=== PATIENT | male | born 1970 | race Caucasian/White ===

== ENCOUNTER 2018-06-20 17:27 | Observation (INO) | payer OTHER, BC ==
--- NOTE | 2018-06-20 17:45 | PDOC ---
Rapid Medical Evaluation Time Seen by Provider: 06/20/18 17:43 Medical Evaluation: 06/20/18 17:43 I have performed a brief in-person evaluation of this patient. The patient presents with a chief complaint of:sent by for eval abnormal EKG yesterday in the office. history of MO, pt has no complaints at present. history of HTN Pertinent physical exam findings: I have ordered the following:EKG, cbc , cmet, trop , CPK The patient will proceed to the ED for further evaluation.
[2018-06-20 18:00] VITALS: BMI 32.5
--- NOTE | 2018-06-20 18:50 | PDOC ---
History of Present Illness - General Chief Complaint: Blood Pressure Problem Stated Complaint: PCP SENT/EVALUATION, SENT BY CLIENT SERVICE MANAGER Time Seen by Provider: 06/20/18 17:43 - History of Present Illness Initial Comments: 47 year old male with with history of HTN, HLD, and recent ND (AMA'd from [facility] on 05/22 after being told) presenting to our ED for elevated BP after Dr. Awan saw him yesterday and noted elevated pressures with septal infarct EKG and afib so he told him to come to the hospital. Per conversation with Dr. Duran, this patient has been known to use cocaine in the past and there was a report of him having an ND in his records as well. The patient, however denies any symptoms including chest pain, SOB, headache, palpitations, nausea, vomiting , or any other symptoms. He admits to Marijuana usage but no other drug usage. 06/20/18 22:13 Past History - Past Medical History Allergies/Adverse Reactions: Allergies Allergy/AdvReac Type Severity Reaction Status Date / Time No Known Allergies Allergy Verified 06/20/18 17:49 Home Medications: Ambulatory Orders Albuterol Sulfate Inhaler - [Ventolin Hfa Inhaler -] 1 - 2 inh PO Q4H 06/20/18 Aspirin [Aspirin EC] 81 mg PO DAILY 06/20/18 Fluticasone/Salmeterol [Advair Hfa 115-21 Mcg Inhaler] 1 inh PO BID 06/20/18 Metoprolol Succinate [Toprol Xl -] 100 mg PO DAILY 06/20/18 Simvastatin [Zocor -] 40 mg PO HS 06/20/18 Cardiac Disorders: Yes (ND 05/2018) COPD: No CHF: No HTN: Yes - Suicide/Smoking/Psychosocial Hx Smoking History: Current every day smoker Number of Cigarettes Smoked Daily: 0 Information on smoking cessation initiated: Yes Hx Alcohol Use: No Drug/Substance Use Hx: No Substance Use Type: Marijuana Review of Systems - Review of Systems Constitutional: No: Chills, Diaphoresis HEENTM: No: Blurred Vision, Tearing, Recent change in vision, Double Vision Respiratory: No: Cough, Orthopnea, Shortness of Breath Cardiac (ROS): No: Chest Pain, Edema, Irregular Heart Rate ABD/GI: No: Constipated, Diarrhea, Nausea, Vomiting : No: Burning, Dysuria Musculoskeletal: No: Back Pain, Joint Pain Integumentary: No: Bruising, Erythema, Flushing, Lesions Neurological: No: Headache, Numbness, Paresthesia, Pre-Existing Deficit, Seizure , Tingling, Ataxia Psychiatric: No: Anxiety, Depression Endocrine: No: Excessive Sweating, Flushing Hematologic/Lymphatic: No: Anemia, Blood Clots, Easy Bleeding *Physical Exam - Vital Signs Last Vital Signs Temp Pulse Resp BP Pulse Ox 99 F 69 18 179/127 H 97 06/20/18 17:44 06/20/18 17:44 06/20/18 17:44 06/20/18 17:44 06/20/18 17:44 - Physical Exam General Appearance: Yes: Nourished, Appropriately Dressed. No: Apparent Distress HEENT: positive: EOMI, DANIEL, Normal ENT Inspection, Normal Voice Neck: positive: Trachea midline, Normal Thyroid, Supple. negative: Tender, Rigid Respiratory/Chest: positive: Lungs Clear, Normal Breath Sounds. negative: Chest Tender, Respiratory Distress, Accessory Muscle Use Cardiovascular: positive: Irregularly Irregular. negative: Regular Rhythm, Regular Rate Gastrointestinal/Abdominal: positive: Normal Bowel Sounds, Flat, Soft. negative : Tender Lymphatic: negative: Adenopathy, Tenderness Musculoskeletal: positive: Normal Inspection. negative: Decreased Range of Motion Extremity: positive: Normal Capillary Refill, Normal Inspection, Normal Range of Motion. 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 Awan noticed EKG changes ( suspected lateral wall ST changes) and elevated BP to 180s. BP on presentation to our ED was 200s but patient was completely asymptomatic. Patient given labetalol 10 IV with minimal response and hydrochlorothiazide 25 PO given after discussion with Dr. Funk (covering for Dr. Awan). Dr. Awan also recommended starting Eliquis 5 PO given his Afib after chemistry returns ( assuming it would be WNL). Patient also discussed with Dr. Duran who also recommended blood pressure control per cardiology. He also added that he suspected this patient of cocaine abuse. Unfortunately our lab had significant CMP delays because of the learning curve with a new machine. The troponin returned elevated (1.15) after my conversation with Dr. Duran and Dr. Castillo. We discussed the case with the ED team and decided to anti- coagulate with heparin drip for concern of NSTEMI along with the AFIB and [id number] of 2. Overall pathological picture of the patient is hypertensive urgency with cardiac ischemia vs. hypertensive emergency (given troponin leak) . However, patient was treated for both pathologies with BP control, AC, and ASA. Patient was also signed out to hospitalist service for "tuck-in service" *DC/Admit/Observation/Transfer Diagnosis at time of Disposition: Hypertensive emergency, Elevated troponin I level - Discharge Dispostion Condition at time of disposition: Stable Decision to Admit order: Yes - Referrals - Patient Instructions - Post Discharge Activity
--- NOTE | 2018-06-20 19:13 | PDOC ---
Attending Attestation - [facility] HPI: 06/20/18 20:07 The patient is a 47 year old male, with a significant past medical history of HTN and HI (05/2018), who presents to the ED complaining of an abnormal EKG. 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 He went to [facility] ED for evaluation and was told that he had left sided heart failure, hypertension and elevated troponin. 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 He saw his PCP Dr. Cutler who referred him to Dr. Frias. He saw them yesterday and had an EKG performed that was abnormal. Dr. Frias advised the patient to come to the ED for further evaluation. The patient denies chest pain, shortness of breath, headache and dizziness. Denies fever, chills, nausea, vomiting, diarrhea or constipation. Denies dysuria , frequency, urgency and hematuria. Allergies: None Past surgical history: None reported Social History: Marijuana Use. - Physicial Exam PE: 06/20/18 20:07 Constitutional: Awake, alert, oriented. No acute distress. Head: Normocephalic. Atraumatic Eyes: PERRL. EOMI. Conjunctivae are not pale. ENT: Mucous membranes are moist and intact. Posterior pharynx without exudates or erythema. Uvula midline. Neck: Supple. Full ROM. No lymphadenopathy. Cardiovascular: Regular rate. Regular rhythm. S1, S2 regular. Distal pulses are 2+ and symmetric. Pulmonary/Chest: No evidence of respiratory distress. Clear to auscultation bilaterally No wheezing, rales or rhonchi. Abdominal: Soft and non-distended. There is no tenderness. No rebound, guarding or rigidity. No organomegaly. No palpable masses. Good bowel sounds. Back: No CVA tenderness. Musculoskeletal: No edema. No cyanosis. No clubbing. Full range of motion in all extremities. Nocalf tenderness. Radial/pedal pulses are intact and 2+ bilaterally Skin: Skin is warm and dry. No petechiae. No purpura. Neurological: Alert and oriented to person, place, and time. Cranial nerves II -XII are grossly intact. Normal speech. Strength is grossly symmetric. No sensory deficits. Psychiatric: Good eye contact. Normal interaction, affect and behavior. <Luis Romero - Last Filed: 06/20/18 20:07> - Resident Resident Name: Patricio Domínguez - ED Attending Attestation I have performed the following: I have examined & evaluated the patient, The case was reviewed & discussed with the resident, I agree w/resident's findings & plan, Exceptions are as noted - Medical Decision Making 06/20/18 19:12 I, Dr. Cary Lee, DO, attest that this document has been prepared under my direction and personally reviewed by me in its entirety. I further attest, that it accurately reflects all work, treatment, procedures and medical decision -making performed by me. 06/20/18 21:36 a/p: 47yo male with "HI" a month ago treated at [facility] - saw Dr. Frias yesterday and was told to come to the ED for an abnl ekg -pt arrives hypertensive -pt denies all somatic complaints -no cp/sob -pt denies paresthesias -pt with new onset afib on ekg -on beta martínez -will give labetalol iv and then hctz if still hypertensive -will send labs, trop, ekg, cxr 06/20/18 21:38 resident discussed the case with Dr. Funk who recommends elaquis for new onset afib 06/20/18 21:56 resident is discussing the case with Dr. Duran who accepted to service <Cary Lee - Last Filed: 06/20/18 22:11> Heart Score/ECG Review - ECG Intrepretation Comment:: 06/20/18 20:22 afib at 76, lvh, t wave inversions lateral leads, q waves anteriorly, abnl ekg <Cary Lee - Last Filed: 06/20/18 22:11>
[2018-06-20 20:18] LABS: BASO % 1.4 % (0-2.0); EOS % 3.2 % (0-4.5); HEMATOCRIT 45.8 % (35.4-49); HEMOGLOBIN 15.6 GM/dL (11.7-16.9); LYMPH % 17.6 % (8-40); MCH 29.3 pg (25.7-33.7); MEAN CELL VOLUME 86.3 fl (80-96); MEAN PLT VOLUME 8.7 fl (7.5-11.1); MONO % 7.4 % (3.8-10.2); NEUT % 70.4 % (42.8-82.8); PLATELET COUNT 302 K/MM3 (134-434); RBC 5.31 M/mm3 (4.00-5.60); RDW 14.3 % (11.9-15.9); WHITE BLOOD COUNT 13.9 K/mm3 (4.0-10.0)
[2018-06-20] MEDS ORDERED: LABETALOL HCL 5 MG/1 ML (100MG/20 ML VIAL) IVPUSH ONE (20:27)
[2018-06-20 20:28] LABS: INR 1.05 (0.83-1.09); PROTHROMBIN TIME (PATIENT) 12.4 SEC (9.7-13.0)
[2018-06-20 20:31] LABS: ACTIVATED PTT 30.9 SECONDS (25.2-36.5)
[2018-06-20] MEDS ORDERED: LABETALOL HCL 5 MG/1 ML (200MG/40ML VIAL) IVPB ONE (20:45)
[2018-06-20] MEDS ORDERED: HYDROCHLOROTHIAZIDE 25 MG TABLET (FP) PO ONE (22:05)
[2018-06-20] MEDS ORDERED: HYDROCHLOROTHIAZIDE 25 MG TABLET (FP) ONE (22:14)
[2018-06-20] MEDS ORDERED: ASPIRIN 81 MG CHEWABLE TABLETS PO ONE (22:15)
[2018-06-20] MEDS ORDERED: ASPIRIN 81 MG CHEWABLE TABLETS ONE (22:19)
[2018-06-20 22:21] LABS: ALBUMIN 3.9 g/dl (3.4-5.0); ALK PHOS 64 U/L (45-117); ANION GAP 6 MMOL/L (8-16); BILIRUBIN,TOTAL 0.9 mg/dL (0.2-1); BLOOD UREA NITROGEN 9 mg/dL (7-18); CALCIUM 9.7 mg/dL (8.5-10.1); CHLORIDE 105 mmol/L (98-107); CO2 29 mmol/L (21-32); GLUCOSE,RANDOM 80 mg/dL (74-106); POTASSIUM 4.6 mmol/L (3.5-5.1); SGOT/AST 21 U/L (15-37); SGPT/ALT 30 U/L (13-61); SODIUM 141 mmol/L (136-145); TOT PROT 7.4 g/dl (6.4-8.2)
[2018-06-20] MEDS ORDERED: HEPARIN NA (PORCINE) 5,000 UNITS/ML 1ML VIAL IVPUSH PRN ×2 (23:05)
[2018-06-20] MEDS: HEPARIN INFUSION - 25,000 UNITS/500 ML INFUS.BAG IVPB SCH (23:35)
--- NOTE | 2018-06-20 23:50 | HP ---
CHIEF COMPLAINT: Elevated Blood Pressure PCP: Dorothy Fowler HISTORY OF PRESENT ILLNESS: This is a 47 y/o man with a PMHx of Afib (no AC), HTN, [place] 05/22/18. Who presents to the ED complaining of an abnormal EKG. 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 He went to [facility] ED for evaluation and was told that he had left sided heart failure, hypertension and elevated troponin. 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 He saw his PCP Dr. Cutler who referred him to Dr. Frias. He saw them yesterday and had an EKG performed that was abnormal. Dr. Frias advised the patient to come to the ED for further evaluation. Patient denies CP, Palpitations, SOB, blurred vision. Patient denies fever, chills, cough, AP, N/V/D, constipation, dysuria. ER course was notable for: (1) BP 179/127- 149/107 (2) EKG- Afib 76 bpm, incomplete RBBB, marked ST abnormality (3) Troponin I- 1.15 Recent Travel: None PAST MEDICAL HISTORY: See HPI PAST SURGICAL HISTORY: Social History: Smoking: Current Smoker Alcohol: Denies Use Drugs: Marijuana Occasional lives with spouse and child, employed Family History: Mother: HTN Father: Healthy Siblings: Alive and well Allergies No Known Allergies Allergy (Verified 06/20/18 17:49) HOME MEDICATIONS: Home Medications Medication Instructions Recorded Albuterol Sulfate Inhaler - 1 - 2 inh PO Q4H 06/20/18 [Ventolin Hfa Inhaler -] Aspirin [Aspirin EC] 81 mg PO DAILY 06/20/18 Fluticasone/Salmeterol [Advair Hfa 1 inh PO BID 06/20/18 115-21 Mcg Inhaler] Metoprolol Succinate [Toprol Xl -] 100 mg PO DAILY 06/20/18 Simvastatin [Zocor -] 40 mg PO HS 06/20/18 REVIEW OF SYSTEMS CONSTITUTIONAL: Absent: fever, chills, diaphoresis, generalized weakness, malaise, loss of appetite, weight change HEENT: Absent: rhinorrhea, nasal congestion, throat pain, throat swelling, difficulty swallowing, mouth swelling, ear pain, eye pain, visual changes CARDIOVASCULAR: Absent: chest pain, syncope, palpitations, irregular heart rate, lightheadedness , peripheral edema RESPIRATORY: Absent: cough, shortness of breath, dyspnea with exertion, orthopnea, wheezing, stridor, hemoptysis GASTROINTESTINAL: Absent: abdominal pain, abdominal distension, nausea, vomiting, diarrhea, constipation, melena, hematochezia GENITOURINARY: Absent: dysuria, frequency, urgency, hesitancy, hematuria, flank pain, genital pain MUSCULOSKELETAL: Absent: myalgia, arthralgia, joint swelling, back pain, neck pain SKIN: Absent: rash, itching, pallor HEMATOLOGIC/IMMUNOLOGIC: Absent: easy bleeding, easy bruising, lymphadenopathy, frequent infections ENDOCRINE: Absent: unexplained weight gain, unexplained weight loss, heat intolerance, cold intolerance NEUROLOGIC: headache Absent: focal weakness or paresthesias, dizziness, unsteady gait, seizure, mental status changes, bladder or bowel incontinence PSYCHIATRIC: Absent: anxiety, depression, suicidal or homicidal ideation, hallucinations. PHYSICAL EXAMINATION Vital Signs - 24 hr 06/20/18 06/20/18 17:44 21:52 Temperature 99 F 98.1 F Pulse Rate 69 Pulse Rate [ 81 Left Apical] Respiratory 18 18 Rate Blood Pressure 179/127 H Blood Pressure 149/107 H [Right Arm] O2 Sat by Pulse 97 97 Oximetry (%) GENERAL: Awake, alert, and fully oriented, in no acute distress. HEAD: Normal with no signs of trauma. EYES: Pupils equal, round and reactive to light, extraocular movements intact, sclera anicteric, conjunctiva clear. No lid lag. EARS, NOSE, THROAT: Ears normal, nares patent, oropharynx clear without exudates. Moist mucous membranes. NECK: Normal range of motion, supple without lymphadenopathy, JVD, or masses. LUNGS: Breath sounds equal, clear to auscultation bilaterally. No wheezes, and no crackles. No accessory muscle use. HEART: Irregular rate and rhythm, normal S1 and S2 without murmur, rub or gallop. ABDOMEN: Soft, nontender, not distended, normoactive bowel sounds, no guarding, no rebound, no masses. No hepatomegaly or splenomegaly. MUSCULOSKELETAL: Normal range of motion at all joints. No bony deformities or tenderness. No CVA tenderness. UPPER EXTREMITIES: 2+ pulses, warm, well-perfused. No cyanosis. No clubbing. No peripheral edema. LOWER EXTREMITIES: 2+ pulses, warm, well-perfused. No calf tenderness. No peripheral edema. NEUROLOGICAL: Cranial nerves II-XII intact. Normal speech. Gait not observed. PSYCHIATRIC: Cooperative. Good eye contact. Appropriate mood and affect. SKIN: Warm, dry, normal turgor, no rashes or lesions noted, normal capillary refill. Laboratory Results - last 24 hr 06/20/18 06/20/18 06/20/18 19:30 19:30 19:30 WBC 13.9 H RBC 5.31 Hgb 15.6 Hct 45.8 MCV 86.3 MCH 29.3 MCHC 34.0 RDW 14.3 Plt Count 302 MPV 8.7 Absolute Neuts (auto) 9.8 H Neutrophils % 70.4 Lymphocytes % 17.6 Monocytes % 7.4 Eosinophils % 3.2 Basophils % 1.4 Nucleated RBC % 0 PT with INR 12.40 INR 1.05 PTT (Actin FS) 30.9 Sodium 141 Potassium 4.6 Chloride 105 Carbon Dioxide 29 Anion Gap 6 L BUN 9 Creatinine 1.0 Creat Clearance w eGFR > 60 Random Glucose 80 Calcium 9.7 Total Bilirubin 0.9 AST 21 ALT 30 Alkaline Phosphatase 64 Creatine Kinase 77 Troponin I 1.15 H* Total Protein 7.4 Albumin 3.9 ASSESSMENT/PLAN: This is a 47 y/o man with a PMHx of: Afib (no AC), HTN, [place] 05/22. Placed in Tele Observation for Hypertension Urgency, NSTEMI for further evaluation of their emergent condition. FEN PO fluids as tolerated Replete lytes as indicated Low Na Diet Code Status: Full Code Dispo: Tele Observation Problem List - Problem (1) Hypertensive emergency Assessment/Plan: - Continue Cardiac Monitoring - Appreciate Cardiology consult - Renal US in am r/o stenosis - Labetolol given in ED - Continue home med - Monitor CBC, BMP Code(s): I16.1 - HYPERTENSIVE EMERGENCY (2) NSTEMI (non-ST elevated myocardial infarction) Assessment/Plan: - s/p [place] (05/22/18) - Continue cardiac monitoring - Serial Enzymes - On exam: pt denies chest pain, palpitations or SOB - Started on Heparin Protocol in Ed, will continue - Appreciate Cardiology consult - Asa, BB - Monitor CBC, BMP Code(s): I21.4 - NON-ST ELEVATION (NSTEMI) MYOCARDIAL INFARCTION (3) Elevated troponin I level Assessment/Plan: - s/p [place] - Cardiac Monitoring - Serial Enzymes - Appreciate Cardiology consult Code(s): R74.8 - ABNORMAL LEVELS OF OTHER SERUM ENZYMES (4) Afib Assessment/Plan: - EKG- Afib, incomplete RBBB, LVH, TWI lateral leads - [id number] 2 - Continue BB - Currently on Heparin Drip for NSTEMI - Would benefit with Eliquis on d/c Code(s): I48.91 - UNSPECIFIED ATRIAL FIBRILLATION Visit type - Emergency Visit Emergency Visit: Yes ED Registration Date: 06/20/18 Care time: The patient presented to the Emergency Department on the above date and was hospitalized for further evaluation of their emergent condition. - New Patient This patient is new to me today: Yes Date on this admission: 06/20/18 - Critical Care Critical Care patient: No
[2018-06-20] MEDS ORDERED: HEPARIN INFUSION - 25,000 UNITS/500 ML INFUS.BAG IVPB ONE (23:55)
[2018-06-21 00:34] LABS: COCAINE, UR NEGATIVE ng/ml (CUTOFF=300); METHADONE, UR NEGATIVE ng/ml (CUTOFF=300); OPIATES, URI NEGATIVE ng/ml (CUTOFF=300); PHENCYCLIDINE,URINE NEGATIVE ng/ml (CUTOFF=25); URINE AMPHETAMINES NEGATIVE ng/ml (CUTOFF=500); URINE BARBITURATES NEGATIVE ng/ml (CUTOFF=200); URINE BENZODIAZEPINES NEGATIVE ng/ml (CUTOFF=200)
[2018-06-21 01:40] LABS: CHOLESTEROL 119 mg/dL (50-200); HDL CHOLESTEROL 44 mg/dL (40-60); TRIGLYCERIDES 53 mg/dL (0-150)
[2018-06-21 07:45] LABS: BASO % 1.4 % (0-2.0); HEMATOCRIT 46.1 % (35.4-49); HEMOGLOBIN 15.5 GM/dL (11.7-16.9); LYMPH % 20.9 % (8-40); MCHC 33.6 g/dl (32.0-35.9); MEAN CELL VOLUME 86.3 fl (80-96); MEAN PLT VOLUME 8.6 fl (7.5-11.1); MONO % 6.9 % (3.8-10.2); NEUT % 67.8 % (42.8-82.8); PLATELET COUNT 283 K/MM3 (134-434); RBC 5.34 M/mm3 (4.00-5.60); RDW 14.2 % (11.9-15.9); WHITE BLOOD COUNT 13.5 K/mm3 (4.0-10.0)
[2018-06-21 08:06] LABS: ANION GAP 4 MMOL/L (8-16); BLOOD UREA NITROGEN 10 mg/dL (7-18); CALCIUM 10.2 mg/dL (8.5-10.1); CHLORIDE 100 mmol/L (98-107); CO2 34 mmol/L (21-32); CREATININE 0.9 mg/dL (0.55-1.3); GLUCOSE,RANDOM 83 mg/dL (74-106); MAGNESIUM 2.3 mg/dL (1.8-2.4); PHOSPHOROUS 3.7 mg/dL (2.5-4.9); SODIUM 138 mmol/L (136-145)
--- NOTE | 2018-06-21 08:47 | CON.CARD ---
Consult Consult Specialty:: cardiology Reason for Consultation:: s/p [place]: +TNI at [place] 4 weeks ago, and now - History of Present Illness Chief Complaint: A&Ox3; no chest pain or palpitations presently; +MAYER History of Present Illness: 47 year old white male with with history of HTN, HLD, and recent [place] (AMA'd from [facility] on 05/22 after being told), anxiety, presenting to our ED for elevated BP after Dr. Ashby saw him yesterday and noted elevated pressures with septal infarct EKG and afib so he told him to come to the hospital. Per conversation with Dr. Duran, this patient has been known to use cocaine in the past and there was a report of him having an WA in his records as well. The patient, however denies any symptoms including chest pain, SOB, headache, palpitations, nausea, vomiting, or any other symptoms. He admits to Marijuana usage but no other drug usage. 06/20/18 22:1 - History Source History Provided By: Patient, Medical Record Limitations to Obtaining History: No Limitations - Past Medical History Cardio/Vascular: Yes: AFIB, CAD, CHF (diastolic), HTN, Hyperlipdemia, [place] (early May, 2018) Pulmonary: No: Asthma Renal/: No: Renal Inusuff Psych: Yes: Addictions (marijuana), Anxiety - Alcohol/Substance Use Hx Alcohol Use: No - Smoking History Smoking history: Current some day smoker (marijuana) Aproximately how many cigarettes per day: 0 Home Medications - Allergies Allergies/Adverse Reactions: Allergies Allergy/AdvReac Type Severity Reaction Status Date / Time No Known Allergies Allergy Verified 06/20/18 17:49 - Home Medications Home Medications: Ambulatory Orders Albuterol Sulfate Inhaler - [Ventolin Hfa Inhaler -] 1 - 2 inh PO Q4H 06/20/18 Aspirin [Aspirin EC] 81 mg PO DAILY 06/20/18 Fluticasone/Salmeterol [Advair Hfa 115-21 Mcg Inhaler] 1 inh PO BID 06/20/18 Metoprolol Succinate [Toprol Xl -] 100 mg PO DAILY 06/20/18 Simvastatin [Zocor -] 40 mg PO HS 06/20/18 Family Disease History - Family Disease History Family History: Denies Review of Systems - Review of Systems Constitutional: reports: No Symptoms Eyes: reports: No Symptoms HENT: reports: No Symptoms Neck: reports: No Symptoms Cardiovascular: reports: Palpitations Respiratory: reports: SOB on Exertion Gastrointestinal: reports: No Symptoms Genitourinary: reports: No Symptoms Breasts: reports: No Symptoms Reported Musculoskeletal: reports: No Symptoms Integumentary: reports: No Symptoms Neurological: reports: No Symptoms Endocrine: reports: No Symptoms Hematology/Lymphatic: reports: No Symptoms Psychiatric: reports: Anxiety, Other - Risk Factors Known Risk Factors: Yes: Age, Gender, Hypercholesterolemia, Hypertension, Physical Inactivity, Prior WA /Emb Stroke, Smoking ("but not tobacco") Vital Signs: Vital Signs Temperature 98.1 F 06/20/18 21:52 Pulse Rate 82 06/21/18 06:06 Respiratory Rate 18 06/21/18 06:06 Blood Pressure 152/79 06/21/18 06:06 O2 Sat by Pulse Oximetry (%) 97 06/20/18 21:52 Constitutional: Yes: Calm Eyes: Yes: WNL HENT: Yes: WNL Neck: Yes: WNL Respiratory: Yes: WNL, Regular Gastrointestinal: Yes: Soft Renal/: No: Anuria JVD: No Carotid Bruit: No PMI: Non-Displaced Heart Sounds: Yes: S1 (varies in intensity), S2 Murmur: Yes: Systolic Murmur, Grade 2 Musculoskeletal: Yes: WNL Extremities: Yes: WNL Edema: No Peripheral Pulses WNL: No Peripheral Pulses: 2+ Left Doralis Pedis, 2+ Right Dorsalis Pedis Integumentary: Yes: WNL Neurological: Yes: WNL ...Motor Strength: WNL Psychiatric: Yes: WNL - Other Data Labs, Other Data: CBC, BMP 06/21/18 06:45 06/21/18 06:45 INR, PTT INR 1.05 (0.83-1.09) 06/20/18 19:30 Troponin, BNP 06/20/18 06/20/18 06/21/18 19:30 23:08 06:45 Troponin I 1.15 H* 1.01 H* 1.15 H* Troponin, BNP 06/20/18 06/20/18 06/21/18 19:30 23:08 06:45 Troponin I 1.15 H* 1.01 H* 1.15 H* Abnormal Lab Results 06/20/18 06/20/18 06/21/18 19:30 23:08 00:03 WBC Absolute Neuts (auto) PTT (Actin FS) Carbon Dioxide Anion Gap 6 L Calcium Troponin I 1.15 H* 1.01 H* U Marijuana (THC) Screen Positive A* 06/21/18 06/21/18 06/21/18 06:45 06:45 06:45 WBC 13.5 H Absolute Neuts (auto) 9.2 H PTT (Actin FS) Carbon Dioxide 34 H Anion Gap 4 L Calcium 10.2 H Troponin I 1.15 H* U Marijuana (THC) Screen 06/21/18 15:50 WBC Absolute Neuts (auto) PTT (Actin FS) 69.7 H Carbon Dioxide Anion Gap Calcium Troponin I U Marijuana (THC) Screen Abnormal Lab Results 06/20/18 06/20/18 06/21/18 19:30 23:08 00:03 WBC Absolute Neuts (auto) PTT (Actin FS) Carbon Dioxide Anion Gap Calcium Troponin I 1.15 H* 1.01 H* U Marijuana (THC) Screen Positive A* 06/21/18 06/21/18 06/21/18 06:45 06:45 06:45 WBC 13.5 H Absolute Neuts (auto) 9.2 H PTT (Actin FS) Carbon Dioxide 34 H Anion Gap 4 L Calcium 10.2 H Troponin I 1.15 H* U Marijuana (THC) Screen 06/21/18 15:50 WBC Absolute Neuts (auto) PTT (Actin FS) 69.7 H Carbon Dioxide Anion Gap Calcium Troponin I U Marijuana (THC) Screen Echo: Pending Ejection Fraction %: LVEF > or = 40 % Imaging - Results Chest X-ray: Image Reviewed Ultrasound: Pending (ECHO) EKG: Image Reviewed Problem List - Problems (1) Afib Assessment/Plan: on metoprolol for HR control. On IV heparin. Follow EKG, telemetry. Code(s): I48.91 - UNSPECIFIED ATRIAL FIBRILLATION (2) Elevated troponin I level Assessment/Plan: Pt had [place] early Octor[place]; trated at [place], but left AMA. Now with TNI slightly above 1.0 , with normal CK. EKG pending. ECHO for LVEF pending. NT BNP pending. Basal scar or atelectasis on CXR. Plan: On IV heparin On metoprolol, statin, ASA, clopidogrel. F/u EKG and ECHO. Coronary artery evaluation. Code(s): R74.8 - ABNORMAL LEVELS OF OTHER SERUM ENZYMES (3) NSTEMI (non-ST elevated myocardial infarction) Assessment/Plan: Hx NSTEMI early May,. Treated at [place], but left AMA while still in ER. Now with TNI slightly above 1.0 on multiple draws over past 12 hours; CK negative. EKG: AF; LVH; marked STT abnormalities of possible later subendocardial injury. Plan: EKG serially; telemetry. ASA 325 mg once, then 81-162 mg daily Clopidogrel 300 mg now, then 75 mg daily. Atorvastatin 80 mg now and daily. On IV heparin for AF, NSTEMI. For transfer to [facility] for coronary angiogram (unable to do stress MIBI due to likely recurence of elevated TNI/NSTEMI,hypertensive urgency, bronchial asthma, intermittent chest discomfort). Code(s): I21.4 - NON-ST ELEVATION (NSTEMI) MYOCARDIAL INFARCTION (4) HTN (hypertension) Assessment/Plan: On metoprolol ER 100 mg; will increase to 200 mg daily. Started losartan 50 mg daily. Add diuretic (aldactone 25-50 mg daily). Start IV nitroglycerin at 10 ucg/min, and may increase q 15-30 minutes to a maximum of 100 ucg/minute to maintain a systolic BP 150-160 mmHg. Code(s): I10 - ESSENTIAL (PRIMARY) HYPERTENSION
[2018-06-21] MEDS ORDERED: PATIENT'S OWN MEDICATION (NON-FORMULARY) (Fluticasone/Salmeterol [Advair Hfa 115-21 Mcg In PO SCH (10:00)
[2018-06-21] MEDS ORDERED: ASPIRIN 81 MG CHEWABLE TABLETS ONE (11:42)
--- NOTE | 2018-06-21 12:57 | PN ---
Progress Note, Physician Chief Complaint: 47 y/o man with a PMHx of Afib (no AC), HTN, GA 05/22/18. Who presents to the ED complaining of an abnormal EKG. 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 He went to [facility] ED for evaluation and was told that he had left sided heart failure, hypertension and elevated troponin. 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 He saw his PCP Dr. Cutler who referred him to Dr. Frias. He saw them yesterday and had an EKG performed that was abnormal. Dr. Frias advised the patient to come to the ED for further evaluation. Patient denies CP, Palpitations, SOB, blurred vision. Patient denies fever, chills, cough, AP, N/V/D, constipation, dysuria. - Current Medication List Current Medications: Active Medications Aspirin (Asa -) 81 mg PO DAILY [facility] Atorvastatin Calcium (Lipitor -) 20 mg PO HS [facility] Heparin Sodium (Porcine) (Heparin -) 1,000 unit IVPUSH PRN PRN PRN Reason: Heparin Heparin Sodium (Porcine) (Heparin -) 5,000 unit IVPUSH PRN PRN PRN Reason: Heparin Heparin Sodium/Dextrose (Heparin Infusion -) 25,000 units in 500 mls @ 20 mls/ hr IVPB TITR YOGI; Protocol Last Admin: 06/20/18 23:35 Dose: 1,000 units/hr, 20 mls/hr Losartan Potassium (Cozaar -) 50 mg PO DAILY [facility] Metoprolol Succinate (Toprol Xl -) 100 mg PO DAILY [facility] Non-Formulary Medication (Fluticasone/Salmeterol [Advair Hfa 115-21 Mcg Inhaler] ) 1 inh PO BID [facility] - Objective Vital Signs: Vital Signs Temperature 98.1 F 06/20/18 21:52 Pulse Rate 82 06/21/18 06:06 Respiratory Rate 18 06/21/18 06:06 Blood Pressure 152/79 06/21/18 06:06 O2 Sat by Pulse Oximetry (%) 97 06/20/18 21:52 Constitutional: Yes: Well Nourished, No Distress Eyes: Yes: WNL, Conjunctiva Clear HENT: Yes: WNL, Atraumatic, Normocephalic Neck: Yes: Supple, Trachea Midline Cardiovascular: Yes: Regular Rate and Rhythm, S1, S2 Respiratory: Yes: Regular, CTA Bilaterally Gastrointestinal: Yes: Normal Bowel Sounds, Soft Labs: CBC, BMP 06/21/18 06:45 06/21/18 06:45 INR, PTT INR 1.05 (0.83-1.09) 06/20/18 19:30 Problem List - Problems (1) Afib Code(s): I48.91 - UNSPECIFIED ATRIAL FIBRILLATION (2) Elevated troponin I level Code(s): R74.8 - ABNORMAL LEVELS OF OTHER SERUM ENZYMES (3) HTN (hypertension) Code(s): I10 - ESSENTIAL (PRIMARY) HYPERTENSION (4) NSTEMI (non-ST elevated myocardial infarction) Code(s): I21.4 - NON-ST ELEVATION (NSTEMI) MYOCARDIAL INFARCTION (5) Cocaine abuse Code(s): F14.10 - COCAINE ABUSE, UNCOMPLICATED (6) Obesity (BMI 30.0-34.9) Code(s): E66.9 - OBESITY, UNSPECIFIED Assessment/Plan (1) Afib Code(s): I48.91 - UNSPECIFIED ATRIAL FIBRILLATION (2) Elevated troponin I level Code(s): R74.8 - ABNORMAL LEVELS OF OTHER SERUM ENZYMES (3) HTN (hypertension) Code(s): I10 - ESSENTIAL (PRIMARY) HYPERTENSION (4) NSTEMI (non-ST elevated myocardial infarction) Code(s): I21.4 - NON-ST ELEVATION (NSTEMI) MYOCARDIAL INFARCTION (5) Cocaine abuse Code(s): F14.10 - COCAINE ABUSE, UNCOMPLICATED (6) Obesity (BMI 30.0-34.9) Code(s): E66.9 - OBESITY, UNSPECIFIED discussed with Dr Barba Pt is very noncomplaint Pt has Ant wall Ischemia Pt signedout of previous admission at [facility] Pt will have cardiac cath we will FU closely
[2018-06-21] MEDS ORDERED: DIGOXIN 0.25 MG TABLET (FP) PO SCH (13:15)
[2018-06-21] MEDS: ASPIRIN 81 MG CHEWABLE TABLETS PO SCH (13:18)
[2018-06-21] MEDS ORDERED: HEPARIN NA (PORCINE) 5,000 UNITS/ML 1ML VIAL ONE (13:20)
[2018-06-21] MEDS ORDERED: PT OWN MED DRAWER 7, Y5N ONE ×2 (13:20→15:24)
[2018-06-21] MEDS: LOSARTAN POTASSIUM 50 MG TABLET (FP) PO SCH (14:39)
[2018-06-21] MEDS ORDERED: CLOPIDOGREL BISULFATE 300 MG TABLET PO ONE (14:44)
[2018-06-21] MEDS ORDERED: ATORVASTATIN CA 80 MG TABLET (FP) PO ONE (14:45)
[2018-06-21] MEDS ORDERED: ATORVASTATIN CA 80 MG TABLET (FP) ONE (15:23)
[2018-06-21] MEDS ORDERED: CLOPIDOGREL BISULFATE 75 MG TABLET (FP) ONE (15:23)
[2018-06-21] MEDS: SPIRONOLACTONE 25 MG TABLET (FP) PO SCH (16:08)
[2018-06-21] MEDS ORDERED: SPIRONOLACTONE 25 MG TABLET (FP) ONE (16:14)
[2018-06-21] MEDS ORDERED: NITROGLYCERIN 50MG/D5W 250ML 50 MG/250 ML ML IVPB SCH (16:45)
--- NOTE | 2018-06-21 17:26 | ECHO ---
Name: AQUILINO SCHWARTZ Exam:Adult Echocardiogram Study Date: 06/21/2018 11:30 AM Age: 47 yrs Reason For Study: +TNI,AF Height: 75 in Weight: 260 lb BSA: 2.5 m2 MMode/2D Measurements & Calculations IVSd: 2.7 cm Ao root diam: 3.4 cm LVIDd: 4.6 cm LA dimension: 3.9 cm LVIDs: 3.0 cm LVPWd: 2.0 cm EDV(Teich): 95.5 ml LAV (MOD-bp): 120.0 ml ESV(Teich): 36.0 ml Doppler Measurements & Calculations MV E max mirtha: 106.0 cm/sec AI P1/2t: 936.9 msec MV A max mirtha: 41.2 cm/sec MV E/A: 2.6 MV dec time: 0.17 sec AI max mirtha: 187.3 cm/sec MR max mirtha: 396.4 cm/sec AI max P.0 mmHg MR max P.5 mmHg AI dec slope: 58.6 cm/sec2 TR max mirtha: 240.0 cm/sec Med Peak E' Mirtha: 3.5 cm/sec TR max P.2 mmHg Med E/e': 30.4 Lat Peak E' Mirtha: 4.4 cm/sec Lat E/e': 24.4 PI Vmax: 105.9 cm/sec Procedure A complete two-dimensional transthoracic echocardiogram was performed (2D, M-mode, Doppler and color flow Doppler). The study was technically difficult with many images being suboptimal in quality. The patie nt was in atrial fibrillation with controlled ventricular rate during the exam. Left Ventricle The left ventricle is not well visualized. At least moderate LV hypertrophy, likely concentric with p robably severe thickening of basal septal wall. Unable to quantify due to limited visualization of LV endocar dial borders. Left ventricular systolic function is grossly normal. Regional wall motion abnormalities can not be excluded due to limited visualization. Right Ventricle The right ventricle is not well visualized. The right ventricular systolic function is grossly normal . Atria The left atrium is severely dilated. Mitral Valve The mitral valve is grossly normal. There is trace mitral regurgitation. Tricuspid Valve The tricuspid valve is not well visualized, but is grossly normal. There is trace tricuspid regurgita tion. There was insufficient TR detected to calculate RV systolic pressure. Aortic Valve The aortic valve is not well visualized. Pulmonic Valve The pulmonic valve is not well visualized. Great Vessels The aortic root is normal size. Mildly dilated inferior vena cava. Pericardium/Pleura There is no pericardial effusion. Interpretation Summary The study was technically difficult with many images being suboptimal in quality. At least moderate LV hypertrophy, likely concentric with probably severe thickening of basal septal w all. Unable to quantify due to limited visualization of LV endocardial borders. The left ventricle is not well visualized. Left ventricular systolic function is grossly normal. The right ventricle is not well visualized. The right ventricular systolic function is grossly normal. The left atrium is severely dilated. MD Tracy Roman 06/21/2018 05:25 PM
[2018-06-21] MEDS ORDERED: ACETAMINOPHEN 325 MG TABLET (FP) PO ONE (19:48)
--- NOTE | 2018-06-21 21:38 | EKG ---
Test Reason : Blood Pressure : / mmHG Vent. Rate : 077 BPM Atrial Rate : 375 BPM P-R Int : 000 ms QRS Dur : 118 ms QT Int : 420 ms P-R-T Axes : 000 -10 155 degrees QTc Int : 475 ms ATRIAL FIBRILLATION LEFT VENTRICULAR HYPERTROPHY WITH QRS WIDENING MARKED ST ABNORMALITY, POSSIBLE LATERAL SUBENDOCARDIAL INJURY ABNORMAL ECG WHEN COMPARED WITH ECG OF 20-JUN-2018 23:00, NO SIGNIFICANT CHANGE WAS FOUND Confirmed by CHIRAG CABELLO MD ([id number]) on 06/21/2018 9:37:46 PM Referred By: URIAH NAVAS DR Confirmed By:CHIRAG CABELLO MD
--- NOTE | 2018-06-21 21:59 | EKG ---
Test Reason : Blood Pressure : / mmHG Vent. Rate : 087 BPM Atrial Rate : 340 BPM P-R Int : 000 ms QRS Dur : 114 ms QT Int : 430 ms P-R-T Axes : 000 -03 162 degrees QTc Int : 517 ms ATRIAL FIBRILLATION VOLTAGE CRITERIA FOR LEFT VENTRICULAR HYPERTROPHY MARKED ST ABNORMALITY, POSSIBLE LATERAL SUBENDOCARDIAL INJURY PROLONGED QT ABNORMAL ECG WHEN COMPARED WITH ECG OF 20-JUN-2018 19:50, NO SIGNIFICANT CHANGE WAS FOUND Confirmed by CHIRAG CABELLO MD ([id number]) on 06/21/2018 9:58:44 PM Referred By: Confirmed By:CHIRAG CABELLO MD
[2018-06-21] MEDS ORDERED: ATORVASTATIN CA 20 MG TABLET (FP) PO SCH (22:00)
--- NOTE | 2018-06-21 22:01 | EKG ---
Test Reason : Blood Pressure : / mmHG Vent. Rate : 076 BPM Atrial Rate : 500 BPM P-R Int : 000 ms QRS Dur : 114 ms QT Int : 420 ms P-R-T Axes : 000 -12 153 degrees QTc Int : 472 ms ATRIAL FIBRILLATION INCOMPLETE RIGHT BUNDLE BRANCH BLOCK VOLTAGE CRITERIA FOR LEFT VENTRICULAR HYPERTROPHY MARKED ST ABNORMALITY, POSSIBLE LATERAL SUBENDOCARDIAL INJURY ABNORMAL ECG WHEN COMPARED WITH ECG OF 02-JUN-2018 12:01, NO SIGNIFICANT CHANGE WAS FOUND Confirmed by CHIRAG CABELLO MD ([id number]) on 06/21/2018 10:01:02 PM Referred By: Confirmed By:CHIRAG CABELLO MD
[2018-06-22] MEDS ORDERED: HEPARIN INFUSION - 25,000 UNITS/500 ML INFUS.BAG IVPB ONE (00:18)
[2018-06-22] MEDS ORDERED: ACETAMINOPHEN 325 MG TABLET (FP) PO PRN (00:54)
[2018-06-22] MEDS: HEPARIN INFUSION - 25,000 UNITS/500 ML INFUS.BAG IVPB SCH (02:20)
[2018-06-22] MEDS ORDERED: ACETAMINOPHEN 325 MG TABLET (FP) ONE (03:41)
[2018-06-22 08:17] LABS: HEMATOCRIT 46.5 % (35.4-49); HEMOGLOBIN 15.9 GM/dL (11.7-16.9); MCHC 34.2 g/dl (32.0-35.9); MEAN CELL VOLUME 84.7 fl (80-96); MEAN PLT VOLUME 8.7 fl (7.5-11.1); PLATELET COUNT 314 K/MM3 (134-434); RBC 5.49 M/mm3 (4.00-5.60); RDW 14.6 % (11.9-15.9); WHITE BLOOD COUNT 16.3 K/mm3 (4.0-10.0)
[2018-06-22] MEDS ORDERED: NITROGLYCERIN 25MG/D5W 250ML 25 MG/250 ML ML IVPB ONE (09:14)
[2018-06-22] MEDS ORDERED: ASPIRIN 81 MG CHEWABLE TABLETS ONE (10:17)
[2018-06-22] MEDS: ASPIRIN 81 MG CHEWABLE TABLETS PO SCH (10:18)
[2018-06-22] MEDS: LOSARTAN POTASSIUM 50 MG TABLET (FP) PO SCH (10:18)
[2018-06-22] MEDS: SPIRONOLACTONE 25 MG TABLET (FP) PO SCH (10:19)
[2018-06-22 11:32] VITALS: BP 136/86; PULSE 89; TEMP 98.4
== END 2018-06-22 11:25 | disposition short-term general hospital (02) ==
LOC: JER 17:27 → JERBED 22:06
PROVIDERS: ADMIT Internal Medicine; ATTEND Internal Medicine
CPT/HCPCS: 36415; 71046-TC-FY; 76775-TC; 80048; 80053; 80061; 80307; 82550; 83721; 83735; 84100; 84484; 85025; 85027; 85610; 85730; 93005; 93010; 93306-TC; 99285-25; G0378; J1644